=== PATIENT | male | born 1960 | race African-American/Black ===

== ENCOUNTER 2018-08-26 05:11 | Emergency (ER) | payer MEDICAID ==
[~2018-08-26] VITALS: Ht 180.3 cm; Wt 100.0 kg
[2018-08-26] MEDS ORDERED: MORPHINE SULFATE 4 MG/ML CPJ (NOT FOR IM USE) IV STA (06:43)
[2018-08-26] MEDS ORDERED: SODIUM CHLORIDE 0.9% 1,000 ML IV ONE (06:43)
[2018-08-26] MEDS ORDERED: ONDANSETRON HCL 4MG/2ML INJ IV STA (06:43)
[2018-08-26] MEDS ORDERED: MORPHINE SULFATE 10 MG/ML CPJ IV STA (06:58)
[2018-08-26] MEDS ORDERED: ETOMIDATE 2MG/ML 10ML VIAL IV ONE (08:30)
[2018-08-26] MEDS ORDERED: MORPHINE SULFATE 4 MG/ML CPJ (NOT FOR IM USE) IV ONE (08:30)
[2018-08-26] MEDS ORDERED: MORPHINE SULFATE 10 MG/ML CPJ IV NR (08:44)
[2018-08-26 10:47] VITALS: BP 144/74
== END 2018-08-26 10:49 | disposition home or self-care (01) ==
LOC: EDBD 06:02 → ER 06:02
DX: S43.084A Other dislocation of right shoulder joint, initial encounter (principal); S00.211A Abrasion of right eyelid and periocular area, initial encounter; I10 Essential (primary) hypertension; X58.XXXA Exposure to other specified factors, initial encounter; W01.0XXA Fall on same level from slipping, tripping and stumbling without subsequent striking against object, initial encounter; Y93.89 Activity, other specified; Y92.018 Other place in single-family (private) house as the place of occurrence of the external cause
CPT/HCPCS: 23650; 73030; 96374; 96375; 99152; 99285; J2270; J2405; J3490; J7030; L3670